=== PATIENT | male | born 1965 | race Caucasian/White ===

== ENCOUNTER 2020-06-01 12:15 | Observation (INO) | payer OTHER ==
[~2020-06-01] VITALS: Ht 177.8 cm; Wt 122.7 kg
[2020-06-01] VITALS (10 sets, daily range): BP systolic 107–127; BP diastolic 63–78; PULSE 77–87; TEMP 97.8
[2020-06-01 12:57] LABS: HEMATOCRIT 45.3 % (42.0-52.0); HEMOGLOBIN 15.9 g/dl (13.5-18.0); MEAN CELL VOLUME 86 fl (80.0-100.0); MEAN CORPUSCULAR HEMOGLOBIN 30 pg (27.0-31.0); MEAN CORPUSCULAR HGB CONC 35 g/dl (33.0-37.0); MEAN PLATELET VOLUME 11.1 fl (7.4-10.4); PLATELET COUNT 204 K/mm3 (130-400); RED BLOOD COUNT 5.29 M/mm3 (4.20-5.60); REDCELL DISTRIBUTION WIDTH-CV 13.6 % (11.5-14.5)
[2020-06-01 13:11] LABS: ALANINE AMINOTRANSFERASE 55 U/L (4-49); ALBUMIN 4.2 gm/dL (3.5-5.0); ALKALINE PHOSPHATASE 67 U/L (50-136); ANION GAP 11 mmol/L (7-16); AST,SGOT 42 U/L (15-37); BLOOD UREA NITROGEN 15 mg/dL (9-20); CALCIUM 9.2 mg/dL (8.4-10.2); CARBON DIOXIDE 24 mmol/L (22-30); CHLORIDE 104 mmol/L (98-107); GLUCOSE 140 mg/dL (74-106); LIPASE 18 U/L (23-300); POTASSIUM 3.3 mmol/L (3.4-5.0); SODIUM 139 mmol/L (137-145); TOTAL PROTEIN 7.4 gm/dL (6.4-8.2)
[2020-06-01 13:12] LABS: BAND 16 % (0-10); EOSINOPHIL 1 % (0-4); LYMPHOCYTE 7 % (20.0-51.0); NEUTROPHILS 75 % (42.0-75.2); PLATELET ESTIMATE NORMAL (NORMAL)
[2020-06-01 13:23] LABS: TROPONIN-I < 0.012 ng/mL (0.000-0.035)
[2020-06-01 13:30] LABS: COLLECTION METHOD CLEAN CATCH
[2020-06-01 13:36] LABS: C-REACTIVE PROTEIN 35.5 mg/dL (0.0-0.9)
[2020-06-01 13:41] LABS: MUCOUS Present /lpf; PH 5 (5-8); SQUAMOUS EPITHELIAL 0-2 /hpf; URINE APPEARANCE Hazy; URINE BACTERIA None Seen /hpf; URINE BILIRUBIN Positive (NEGATIVE); URINE BLOOD Negative (NEGATIVE); URINE COLOR Amber; URINE GLUCOSE Negative (NEGATIVE); URINE KETONE Trace (NEGATIVE); URINE LEUKOCYTE ESTERASE Negative (NEGATIVE); URINE NITRATE Negative (NEGATIVE); URINE PROTEIN(semi-quant) 3+ (NEGATIVE); URINE UROBILINOGEN >=4.0 mg/dL (NEGATIVE)
--- NOTE | 2020-06-01 19:15 | NUR ---
Patient up from PACU. Oriented to room and call light. Started on post op vitals. VSS on 3 L of oxygen via nasal cannula. Provided ice chips. No other needs at this time.
--- NOTE | 2020-06-01 19:45 | NUR ---
Daughter is at bedside.
--- NOTE | 2020-06-01 23:00 | NUR ---
Patient ambulated in the halls, standby assist. 96% on room air.
--- NOTE | 2020-06-01 23:40 | NUR ---
PT CALLS. REQUEST URINAL. VOIDS 200 DARK FELIX URINE. O2 SATS AT 96% ON 2L/NC. O2 TURNED DOWN TO 1L/NC. WATER AND ICE CHIPS GIVEN TO PT.
[2020-06-02 04:31] VITALS: BP 119/65; PULSE 79; TEMP 97.8
--- NOTE | 2020-06-02 06:11 | NUR ---
Patient reports not sleeping much throughout the night. [place] and toradol for pain. Urine is still a dark [place] color.
[2020-06-02 06:50] LABS: HEMATOCRIT 40.3 % (42.0-52.0); MEAN CELL VOLUME 88 fl (80.0-100.0); MEAN CORPUSCULAR HEMOGLOBIN 30 pg (27.0-31.0); MEAN CORPUSCULAR HGB CONC 34 g/dl (33.0-37.0); MEAN PLATELET VOLUME 11.8 fl (7.4-10.4); PLATELET COUNT 190 K/mm3 (130-400); RED BLOOD COUNT 4.56 M/mm3 (4.20-5.60); REDCELL DISTRIBUTION WIDTH-CV 14.1 % (11.5-14.5)
[2020-06-02 06:55] LABS: HEMOGLOBIN 13.5 g/dl (13.5-18.0)
[2020-06-02 07:02] LABS: ALANINE AMINOTRANSFERASE 60 U/L (4-49); ALBUMIN 3.5 gm/dL (3.5-5.0); ALKALINE PHOSPHATASE 49 U/L (50-136); ANION GAP 8 mmol/L (7-16); AST,SGOT 45 U/L (15-37); BILIRUBIN,TOTAL 1.2 mg/dL (0.0-1.0); BLOOD UREA NITROGEN 21 mg/dL (9-20); CALCIUM 8.4 mg/dL (8.4-10.2); CARBON DIOXIDE 28 mmol/L (22-30); CHLORIDE 102 mmol/L (98-107); CREATININE, serum 1.03 (0.66-1.25); GLUCOSE 157 mg/dL (74-106); POTASSIUM 3.3 mmol/L (3.4-5.0); SODIUM 138 mmol/L (137-145); TOTAL PROTEIN 6.5 gm/dL (6.4-8.2)
[2020-06-02 07:03] LABS: LIPASE < 10 U/L (23-300)
[2020-06-02 07:44] LABS: BAND 20 % (0-10); LYMPHOCYTE 4 % (20.0-51.0); METAMYELOCYTE 2 % (0-0); NEUTROPHILS 73 % (42.0-75.2)
[2020-06-02 08:14] VITALS: BP 116/65; PULSE 79; TEMP 98.5
[2020-06-02] MEDS ORDERED: CIPRO 500MG TA500 MG PO (08:58)
[2020-06-02] MEDS ORDERED: NORCO 325 MG-51 TAB PO (08:59)
[2020-06-02] MEDS ORDERED: FLAGYL500 MG PO (08:59)
--- NOTE | 2020-06-02 09:03 | NUR ---
PATIENT SHIFT ASSESSMENT COMPLETED AT THIS TIME. ABDOMINAL LAP SITES X5 BUNNY WITH EDGES WELL APPROXIMATED. COLLIN DRAIN TO BULB SUCTION. COLLIN DRAIN TEACHING COMPLETED WITH PATIENT AND GAMING TABLE OPERATOR. QUESTIONS SOUGHT AND ANSWERED. PATIENT GIVEN PRN PAIN PILL AT THIS TIME. BREAKFAST TRAY AT BEDSIDE. PATIENT TO AMBULATE IN HALLWAYS WITH STUDENT NURSE.
--- NOTE | 2020-06-02 11:36 | NUR ---
Labeler met with patient to discuss discharge planning. Patient lives in [place] and reports he moved here a couple years ago. Patient lives with his , Madina (ph#[phone]) and his sixteen year old daughter. Patient sees Dr. Hernandez for primary care and obtains medications from [facility] with no difficulties. Patient does not use any DME but states he has a couple canes if needed. Patient is independent with ADLS and plans to return home upon discharge. Patient does not have Advance Directives but stated this is something he is working on with his . Patient has no concerns or questions about returning home at discharge.
[2020-06-02 12:10] VITALS: BP 130/72; PULSE 78; TEMP 98.1
[2020-06-02 16:00] VITALS: BP 125/78; PULSE 75; TEMP 98.9
--- NOTE | 2020-06-02 17:10 | NUR ---
PATIENT EMPTIED OWN COLLIN DRAIN WITH NURSE OBSERVATION. PATIENTS LEFT AC INT DISCONTINUED. TIP INTACT. PATIENT TOLERATED WELL. DISCHARGE INSTRUCTIONS REVIEWED WITH PATIENT. QUESTIONS SOUGHT AND ANSWERED. PATIENT PERSONAL BELONGINGS GATHERED.
--- NOTE | 2020-06-02 17:30 | NUR ---
PATIENT TAKEN TO PERSONAL VEHICLE VIA WHEELCHAIR. PATIENT DISCHARGED.
== END 2020-06-02 17:30 | disposition home or self-care (01) ==
LOC: COL.ER 12:15 → SURG 14:07 → COL.ER 16:15 → SURG 18:28 → COL.ER 18:28 → SURG 06-02 17:30
PROVIDERS: Nurse Practitioner Primary Care; ADMIT Surgery
DX: K80.01 Calculus of gallbladder with acute cholecystitis with obstruction (principal); K82.A1 Gangrene of gallbladder in cholecystitis; Z20.822 Contact with and (suspected) exposure to COVID-19; Z87.891 Personal history of nicotine dependence
CPT/HCPCS: OP; A9284; G0378; J0744; J1100; J1170; J1650; J1885; J2405; J2704; J2710; J3010; J7030; J7120; Q9967